=== PATIENT | male | born 1990 | race Caucasian/White ===

== ENCOUNTER 2017-07-03 16:34 | Emergency (ER) | payer OTHER, BC ==
--- NOTE | 2017-07-03 18:05 | EDPHY ---
HPI/HX/ROS/PE/MDM Narrative: CHIEF COMPLAINT: Right DVT HPI: This patient is a healthy 26 year old male arriving for evaluation of a right lower extremity DVT diagnosed by ultrasound earlier today. The patient had a knee injury 06/24/17 and reviewed his MRI today, which showed a torn ACL and partially torn MCL. He noted ankle swelling, and underwent an ultrasound which was positive for right sided DVT. The patient will undergo ACL repair in 6 weeks. He denies chest pain or shortness of breath. Family history positive for clots in his grandfather, no immediate family history of clots or clotting disorders. REVIEW OF SYSTEMS: Aside from elements discussed in the HPI, a comprehensive 10-point review of systems was reviewed and is negative. PMH: PTSD. SOCIAL HISTORY: Student at [employer]. Lives in [place]. Single. PHYSICAL EXAM: General:Patient is alert, in no acute distress. ENT:Eyes are normal to inspection. ENT inspection normal. Respiratory:No respiratory distress. Breath sounds normal bilaterally. Cardiovascular: Regular rate and rhythm. Strong peripheral pulses. Normal cap refill. Skin: Normal color. No rash. Warm and dry. Extremities: 1+ edema to right calf with mild calf tenderness. Brace on right knee. Neuro: Oriented x3. Normal motor function. Normal sensory function. ED Course: 26 year old male presents with right-sided LLE DVT diagnosed by ultrasound this afternoon. Exam reveals 1+ edema to the right calf. I discussed anticoagulation therapy with the patient. He states he prefers to avoid Xarelto per his mother' s request, but will defer to my recommendation. Reviewed outpatient US report completed by Dr. Wong, radiologist. Findings below. Impression: 1. Thrombus seen associated with the posterior tibial and peroneal veins in the calf. There is no evidence of thrombus above this. Findings discussed with Madison Hunter MD at 1605 hour, 07/03/2017 I discussed possible anticoagulant options with the patient. He is not interested in lovenox/coumadin. Plan to discharge home in good condition with prescription for Eliquis. Follow up and return precautions discussed. He currently has no complaints of chest pain or shortness of breath to suggest PE. He has no neurologic complaints to suggest CVA or TIA. The patient understands he needs to establish care with a a primary care physician for management of his anticoagulation regimen. He is comfortable with this plan. General Time Seen by Provider: 07/03/17 17:53 Initial Vital Signs: Initial Vital Signs Temperature (C) 36.9 C 07/03/17 16:40 Heart Rate 74 07/03/17 16:40 Respiratory Rate 16 07/03/17 16:40 Blood Pressure 128/66 H 07/03/17 16:40 O2 Sat (%) 98 07/03/17 16:40 O2 Delivery Mode Room Air Allergies/Adverse Reactions: No Known Allergies Allergy (Unverified 07/03/17 16:52) Home Medications: Medication Instructions Recorded Apixaban [Eliquis] 10 mg PO BID #28 tab 07/03/17 Buprenorphine HCl/Naloxone HCl 1 each SL 07/03/17 [Zubsolv 2.9-0.71 mg Tablet Sl] traZODone [traZODONE 100MG (*)] 100 mg PO 07/03/17 Departure - Departure Disposition: Home, Routine, Self-Care Clinical Impression: Right leg DVT Condition: Good Instructions: Deep Venous Thrombosis (ED) Additional Instructions: 1. Take Eliquis as prescribed. 2. Follow up with a primary care provider this week for further management of your medication regimen. We have given you a seven day prescription, but you will need to continue this for a longer time period. We have given you a referral to our local primary care physician it operations specialist. It is important that you establish care as soon as possible to maintain your anticoagulation therapy. 3. Return to the emergency department for increased pain or swelling in your leg or if you develop chest pain, shortness of breath, or other worsening of condition. Referrals: Jewels Bello MD [Medical Doctor] - As per Instructions Prescriptions: Apixaban [Eliquis] 10 mg PO BID #28 tab Report Scribed for: Ambrose Johnson Report Scribed by: Ksenia Upton Date of Report: 07/03/17 Time of Report: 18:05 Physician Review and Approval Statement: Portions of this note were transcribed by an ED scribe. I personally performed the history, physical exam, and medical decision making; and confirm the accuracy of the information in the transcribed note.
[2017-07-03] MEDS ORDERED: APIXABAN 5 MG TAB PO ONE (18:17)
[2017-07-03 18:27] VITALS: BP 132/83; PULSE 69; RESP 18; TEMP 98.6; O2SAT 94
== END 2017-07-03 18:35 | disposition home or self-care (01) ==
DX: I82.401 Acute embolism and thrombosis of unspecified deep veins of right lower extremity (principal)

== ENCOUNTER → 2017-07-03 | Outpatient (CLI) | payer OTHER, BC | LOC: FIMAGING 14:52 | PROVIDERS: ATTEND Orthopaedic Surgery | DX: I82.4Z1 Acute embolism and thrombosis of unspecified deep veins of right distal lower extremity (principal) ==

== ENCOUNTER → 2017-07-17 | Outpatient (CLI) | payer OTHER, BC | LOC: FIMAGING 12:37 | PROVIDERS: ATTEND Internal Medicine | DX: Z09 Encounter for follow-up examination after completed treatment for conditions other than malignant neoplasm (principal); Z86.718 Personal history of other venous thrombosis and embolism ==